=== PATIENT | female | born 1995 | race Caucasian/White ===

== ENCOUNTER 2020-12-28 14:57 | Emergency (ER) | payer OTHER, SELFPAY ==
--- NOTE | 2020-12-28 | XR_ITS ---
PROCEDURE INFORMATION: Exam: XR Left Foot Exam date and time: 12/28/2020 12:00 AM Age: 25 years old Clinical indication: Pain; Toes; Left; Additional info: Hit pinky toe TECHNIQUE: Imaging protocol: XR Left foot. Views: 3 or more views. COMPARISON: No relevant prior studies available. FINDINGS: Bones/joints: Bones appear intact and normally aligned with normal mineralization. No significant arthritic deformities. There are no lytic skeletal lesions seen. Soft tissues: Mild soft tissue swelling. Tiny accessory peroneal ossicle noted, abutting the cuboid bone. No radiopaque foreign bodies. No pathologic soft tissue calcification. IMPRESSION: No acute fracture or dislocation.
[2020-12-28 16:56] VITALS: BP 129/78; PULSE 75; RESP 16; TEMP 37.3; O2SAT 99; BMI 19.5
--- NOTE | 2020-12-28 17:18 | HMH.EDUTC ---
[facility] [place] Disposition Clinical Impression: Toe fracture Qualifiers: Encounter type: initial encounter Toe: lesser toe Fracture type: closed Phalanx: middle Fracture alignment: nondisplaced Laterality: left Qualified Code(s): S92.525A - Nondisplaced fracture of middle phalanx of left lesser toe(s), initial encounter for closed fracture Disposition: Home, Self-Care Condition on Discharge: Good Instructions: How To Perform RICE (Rest, Ice, Compress, Elevate) Additional Instructions: *weight bearing as tolerated *RICE, Rest the extremity, Ice 15-20 minutes 3-4 times daily, Compress- wear the ronald wrap as discussed as much as possible to help reduce swelling and pain, Elevate the extremity when at rest *Ronald wrap is for support and help control swelling, use it except in the shower. Be sure that is not to tight but not to loose either *Elevate when resting *Ibuprofen as directed on package every 6-8 hours as needed for pain an inflammation. If need something more can take Tylenol in between doses of Ibuprofen to help Immediately follow up with your family doctor for new or worsening of symptoms, or no noticeable improvement over the next 3-5 days Referrals: Ramez Green MD [Primary Care Provider] - As needed Maranda Venegas DPM [Staff Physician] - Freya Clark APRN [Nurse Practitioner] - Time of Disposition: 17:42 Medical Decision Making - Sivakumar Inquiry Pt receiving controlled substance: No Sivakumar was queried for this patient: No Vital Signs: 12/28/20 16:56 12/28/20 18:00 Temperature 99.2 F 99.2 F Temperature Source Oral Pulse Rate 75 Pulse Rate [Left] 75 Respiratory Rate 16 16 Blood Pressure 129/78 Blood Pressure [Right Arm] 129/78 Blood Pressure Mean [Right Arm] 95 02 Sat by Pulse Oximetry 99 - Radiology Data #1 Image(s): Foot/Toes Image Reviewed: Yes I reviewed the patient's radiology image ? fracture middle phalanx [facility] [place] HPI - General Stated complaint: AO 12/26 possible broken toe Time Seen by Provider: 12/28/20 17:18 Mode of Arrival: Ambulatory Source of Information: Patient Limitations: No Limitations Description of Symptoms (Recalled from Triage Doc. by RN): pt jammed her L smallest toe in a door. HEENT Symptoms (Recalled from RN notes): No Resp Symptoms (Recalled from RN notes): No Skin Symptoms (Recalled from RN notes): No MS Symptoms (Recalled from RN notes): Yes (L foot and toe pain) Functional Status (Recalled from RN notes): na - History of Present Illness Provider Complaint: Patient states that she was walking on Friday and jammed her left little toe on the corner of the door states that it has continued to have pain and swelling in left little toe so she came in to get it checked States that she josh tapped it for a couple of days and it helped with pain - Related Data Home Medications Medication Instructions Recorded Confirmed levonorgestrel 20 mcg/24 hours (7 INTRAUTERI each 05/01/18 05/01/18 yrs) 52 mg intrauterine device Previous Rx's Medication Instructions Recorded oseltamivir 75 mg capsule 75 mg PO BID 5 Days #10 cap 05/01/18 Allergies Allergy/AdvReac Type Severity Reaction Status Date / Time No Known Allergies Allergy Verified 05/01/18 18:05 - Worker's Comp Is this a Worker's Comp case?: No [facility] History - Hepatitis A Screen Drug use history?: No High risk sexual behaviors?: No History of sexually transmitted infection?: No Currently employed?: No Childcare worker?: No Do you have indoor plumbing?: Yes Do you have electricity?: Yes Attestation statement:: This patient has been screened for Hepatitis A risk factors. I have reviewed the patient's past medical history: Yes - Social History Smoking Status: Never smoker Alcohol Intake: never Occupational Status: employed Housing: house Household Members: family Family Hx:: No significant family history ROS Obtained: Yes All systems reviewed & no additional complaints, Yes Sy
[2020-12-28 18:00] VITALS: BP 129/78; PULSE 75; RESP 16; TEMP 37.3
== END 2020-12-28 18:01 | disposition home or self-care (01) ==
PROVIDERS: Emergency Provider Nurse Practitioner; PCP Family Medicine
DX: S92.525A Nondisplaced fracture of middle phalanx of left lesser toe(s), initial encounter for closed fracture (principal); W22.8XXA Striking against or struck by other objects, initial encounter; Y92.019 Unspecified place in single-family (private) house as the place of occurrence of the external cause
CPT/HCPCS: 73630; 99203; G0463

== ENCOUNTER 2021-01-19 22:03 | Emergency (ER) | payer OTHER, SELFPAY ==
[2021-01-19 22:04] VITALS: BP 126/80; PULSE 80; RESP 14; TEMP 38.8; O2SAT 97; BMI 19.2
[2021-01-19 22:22] VITALS: BP 99/60; PULSE 92; RESP 16; TEMP 37.7
[2021-01-19 22:44] LABS: Basophils # 0.1 K/mm3 (0-0.2); Basophils % 0.6 % (0.1-2.0); Eosinophils % 0.2 % (0.1-12.0); Hematocrit 39.5 % (37.0-47.0); Hemoglobin 14.1 g/dL (12.2-16.2); Lymphocytes # 0.2 K/mm3 (0.7-4.5); Lymphocytes % 3.2 % (10-50); Mean Corpuscular HGB Conc 35.7 g/dL (31.8-35.4); Mean Corpuscular Volume 84.1 fl (81-99); Mean Platelet Volume 7.7 fl (7.4-10.4); Monocytes # 0.4 K/mm3 (0.1-1.0); Neutrophils % 91.1 % (37.0-80.0); Platelet Count 172 K/mm3 (142-424); Red Cell Distribution Width 12.6 % (11.5-17.5); White Blood Count 7.7 K/mm3 (4.8-10.8)
[2021-01-19 22:45] LABS: MANUAL DIFFERENTIAL MANUAL DIFFERENTIAL (MANUAL DIFF)
[2021-01-19 23:05] LABS: Lymphocytes % 7 % (10-50); Monocytes % 2 % (2-9); Neutrophils % 88 % (42-76); Platelet Estimate Normal; RBC Morphology Normal; Total Cells Counted 100
[2021-01-19 23:09] LABS: Alanine Aminotransferase 17 U/L (12-78); Albumin Level 4.8 g/dl (3.5-5.0); Albumin/Globulin Ratio 1.5 (1.1-1.8); Alkaline Phosphatase 38 U/L (38-126); Anion Gap 12.5 mEq/L (5-15); Aspartate Amino Transferase 33 U/L (14-36); Bilirubin,Total 0.9 mg/dl (0.2-1.3); Blood Urea Nitrogen 15 mg/dl (7-17); Calcium 9.5 mg/dl (8.4-10.2); Carbon Dioxide 28 mmol/L (22.0-30.0); Chloride 102 mmol/L (98-107); Creatinine Clearance Estimated 86 mL/min (50-200); Estimated Glomerular Filt Rate 87 ml/min (>60); GFR (African American) 106 ML/MIN (>60); Globulin 3.1 g/dL (1.3-3.2); Glucose 118 mg/dl (74-100); Potassium 3.5 mmoL/L (3.5-5.1); Sodium 139 mmol/L (136-145); Total Protein,Serum 7.9 g/dl (6.3-8.2)
--- NOTE | 2021-01-19 23:15 | XR_ITS ---
PROCEDURE INFORMATION: Exam: XR Chest Exam date and time: 01/19/2021 11:15 PM Age: 25 years old Clinical indication: Other: Febrile TECHNIQUE: Imaging protocol: XR of the chest. Views: 2 views. COMPARISON: No relevant prior studies available. FINDINGS: Lungs: Unremarkable. No consolidation. Pleural spaces: Unremarkable. No pleural effusion. No pneumothorax. Heart/Mediastinum: Unremarkable. No cardiomegaly. Bones/joints: Unremarkable. IMPRESSION: No acute findings.
[2021-01-19 23:32] LABS: Erythrocyte Sedimentation Rate 15 mm/hr (0-20)
[2021-01-19 23:35] VITALS: BP 102/68; PULSE 88; RESP 14; TEMP 37.9
[2021-01-19 23:47] LABS: C-Reactive Protein 1.7 mg/L (0-4)
[2021-01-20 00:01] LABS: Procalcitonin 0.194 ng/mL (0.0-2.0)
== END 2021-01-19 23:53 | disposition left against medical advice (07) ==
PROVIDERS: Emergency Provider Emergency Medicine; PCP Family Medicine
DX: Z53.21 Procedure and treatment not carried out due to patient leaving prior to being seen by health care provider (principal); R50.9 Fever, unspecified; R53.1 Weakness
CPT/HCPCS: 71046; 80053; 84145; 85007; 85025; 85651; 86140; 99211

== ENCOUNTER 2025-02-01 08:26 | Outpatient (CLI) | payer OTHER, SELFPAY ==
--- OUTSIDE RECORDS SUMMARY | 2025-02-02 10:22 | XMS_ITS | Clinical Summary ---
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 Active Active Problems Problem Noted Date Diagnosed Date Routine follow-up 03/16/2024 Aria vaginitis 01/21/2024 Assessment & Plan (01/21/2024 12:42 PM EST): Exam today with discharge consistent with Aria and pH negative for amniotic fluid. Diflucan Rx sent. 39 weeks gestation of 12/04/2023 Assessment & Plan (02/16/2024 3:10 PM EST): Labs reviewed: A+ Rubella immune. Other PNL normal. Failed 1h GTT (170) + 3h GTT (2/4 values). GBS NEGATIVE Last pap 2020 (normal). Needs pap. Ultrasounds: Dated by 7w US inconsistent with LMP. 1T screening US with normal NT (1.1 mm). Anatomy US 10/06 WNL. Growth US 12/17 with EFW 64%, AC 82%, normal fluid; transverse/funic presentation. Growth US 01/20: VERTEX, normal fluid, EFW 61%, AC 91%, BPP 8/8. Genetic Screening: NIPT low risk. Horizon carrier screening negative x14. Immunizations: s/p Tdap 10/3. Counseled, declines flu vax. S/p RSV 12/31. Delivery Planning: Anticipate . H/o x1 - 41w, pelvis proven to 3375g. Desires spontaneous labor but interested in IOL for 39+ weeks. Desires 12 AM -- plan arrival at 0500 -- 2.5 cm dilated today, will forego cervical ripening balloon. Feeding: Plans breast. Has pump. Contraception: considering vasectomy. Pt feels family is complete after this baby. Discussed rec for backup BC for at least 6 months after vasectomy until confirmatory semen analysis. Continue vitamins. Induction methods reviewed in detail including prostaglandins, cervical ripening balloon, Pitocin, amniotomy. Consent obtained for induction of labor, vaginal delivery, or section. Risks, benefits, alternatives discussed, and patient expressed understanding. Written consent signed & placed in patient chart. Plan to arrive 02/17 at 05:00 a.m.. Assessment & Plan (02/12/2024 9:25 AM EST): Labs reviewed: A+ Rubella immune. Other PNL normal. Failed 1h GTT (170) + 3h GTT (2/4 values). GBS NEGATIVE Last pap 2020 (normal). Needs pap. Ultrasounds: Dated by 7w US inconsistent with LMP. 1T screening US with normal NT (1.1 mm). Anatomy US 8/ WNL. Growth US 12/17 with EFW 64%, AC 82%, normal fluid; transverse/funic presentation. Growth US 01/20: VERTEX, normal fluid, EFW 61%, AC 91%, BPP 8/8. Genetic Screening: NIPT low risk. Horizon carrier screening negative x14. Immunizations: s/p Tdap 10/3. Counseled, declines flu vax. S/p RSV 12/31. Delivery Planning: Anticipate . H/o x1 - 41w, pelvis proven to 3375g. Desires spontaneous labor but interested in IOL for 39+ weeks. Desires 12 PM -- scheduled - 39w2d. Feeding: Plans breast. Has pump. Contraception: considering vasectomy. Pt feels family is complete after this baby. Discussed rec for backup BC for at least 6 months after vasectomy until confirmatory semen analysis. Continue vitamins. Membrane sweep today -- 1.5/50/-3. Labor precautions reviewed. Assessment & Plan (02/09/2024 12:22 PM EST): Labs reviewed: A+ Rubella immune. Other PNL normal. Failed 1h GTT (170) + 3h GTT (2/4 values). GBS NEGATIVE Last pap 2020 (normal). Needs pap. Ultrasounds: Dated by 7w US inconsistent with LMP. 1T screening US with normal NT (1.1 mm). Anatomy US 8/6 WNL. Growth US 12/17 with EFW 64%, AC 82%, normal fluid; transverse/funic presentation. Growth US 01/20: VERTEX, normal fluid, EFW 61%, AC 91%, BPP 8/8. Genetic Screening: NIPT low risk. Horizon carrier screening negative x14. Immunizations: s/p Tdap 12/03. Counseled, declines flu vax. S/p RSV 12/31. Delivery Planning: Anticipate . H/o x1 - 41w, pelvis proven to 3375g. Desires spontaneous labor but interested in IOL for 39+ weeks. Desires 02/16 PM -- scheduled - 39w2d. Feeding: Plans breast. Has pump. Contraception: considering vasectomy. Pt feels family is complete after this baby. Discussed rec for backup BC for at least 6 months after vasectomy until confirmatory semen analysis. Continue vitamins. Labor precautions reviewed. Reviewed precautions to call or present for evaluation. Assessment & Plan (02/08/2024 1:58 PM EST): Labs reviewed: A+ Rubella immune. Other PNL normal. Failed 1h GTT (170) + 3h GTT (2/4 values). GBS NEGATIVE Last pap 2020 (normal). Needs pap. Ultrasounds: Dated by 7w US inconsistent with LMP. 1T screening US with normal NT (1.1 mm). Anatomy US 8/6 WNL. Growth US 12/17 with EFW 64%, AC 82%, normal fluid; transverse/funic presentation. Growth US 01/20: VERTEX, normal fluid, EFW 61%, AC 91%, BPP 8/8. Genetic Screening: NIPT low risk. Horizon carrier screening negative x14. Immunizations: s/p Tdap 10/3. Counseled, declines flu vax. S/p RSV 12/31. Delivery Planning: Anticipate . H/o x1 - 41w, pelvis proven to 3375g. Desires spontaneous labor but interested in IOL for 39+ weeks. Desires 12/17 PM -- scheduled - 39w2d. Feeding: Plans breast. Has pump. Contraception: considering vasectomy. Pt feels family is complete after this baby. Discussed rec for backup BC for at least 6 months after vasectomy until confirmatory semen analysis. Continue vitamins. Labor precautions reviewed. Reviewed precautions to call or present for evaluation. Assessment & Plan (02/05/2024 9:54 AM EST): Labs reviewed: A+ Rubella immune. Other PNL normal. Failed 1h GTT (170) + 3h GTT (2/4 values). GBS NEGATIVE Last pap 2020 (normal). Needs pap. Ultrasounds: Dated by 7w US inconsistent with LMP. 1T screening US with normal NT (1.1 mm). Anatomy US 8 WNL. Growth US 12/17 with EFW 64%, AC 82%, normal fluid; transverse/funic presentation. Growth US 01/20: VERTEX, normal fluid, EFW 61%, AC 91%, BPP 8/8. Genetic Screening: NIPT low risk. Horizon carrier screening negative x14. Immunizations: s/p Tdap 10/3. Counseled, declines flu vax. S/p RSV 12/31. Delivery Planning: Anticipate . H/o x1 - 41w, pelvis proven to 3375g. Desires spontaneous labor but interested in IOL for 39+ weeks. Desires 12/17 PM -- scheduled. Feeding: Plans breast. Has pump. Contraception: considering vasectomy. Pt feels family is complete after this baby. Discussed rec for backup BC for at least 6 months after vasectomy until confirmatory semen analysis. Continue vitamins. Labor precautions reviewed. Reviewed precautions to call or present for evaluation. Assessment & Plan (01/28/2024 8:38 AM EST): Labs reviewed: A+ Rubella immune. Other PNL normal. Failed 1h GTT (170) + 3h GTT (2/4 values). GBS NEGATIVE Last pap 2020 (normal). Needs pap. Ultrasounds: Dated by 7w US inconsistent with LMP. 1T screening US with normal NT (1.1 mm). Anatomy US 8/6 WNL. Growth US 12/17 with EFW 64%, AC 82%, normal fluid; transverse/funic presentation. Growth US 01/20: VERTEX, normal fluid, EFW 61%, AC 91%, BPP 8/8. Genetic Screening: NIPT low risk. Horizon carrier screening negative x14. Immunizations: s/p Tdap 10/3. Counseled, declines flu vax. S/p RSV 12/31. Delivery Planning: Anticipate . H/o x1 - 41w, pelvis proven to 3375g. Desires spontaneous labor but interested in IOL for 39+ weeks. Desires 12/17 PM -- scheduled. Feeding: Plans breast. Has pump. Contraception: considering vasectomy. Pt feels family is complete after this baby. Discussed rec for backup BC for at least 6 months after vasectomy until confirmatory semen analysis. Continue vitamins. Labor precautions reviewed. Reviewed precautions to call or present for evaluation. Assessment & Plan (01/28/2024 7:59 AM EST): Labs reviewed: A+ Rubella immune. Other PNL normal. Failed 1h GTT (170) + 3h GTT (2/4 values). GBS NEGATIVE Last pap 2020 (normal). Needs pap. Ultrasounds: Dated by 7w US inconsistent with LMP. 1T screening US with normal NT (1.1 mm). Anatomy US 8/6 WNL. Growth US 12/17 with EFW 64%, AC 82%, normal fluid; transverse/funic presentation. Growth US today 01/20: VERTEX, normal fluid, EFW 61%, AC 91%, BPP 8/8. Genetic Screening: NIPT low risk. Horizon carrier screening negative x14. Immunizations: s/p Tdap 10/3. Counseled, declines flu vax. S/p RSV 12/31. Delivery Planning: Anticipate . H/o x1 - 41w, pelvis proven to 3375g. Desires spontaneous labor but interested in IOL for 39+ weeks. Desires 12/17 PM -- scheduled. Feeding: Plans breast. Has pump. Contraception: considering vasectomy. Pt feels family is complete after this baby. Discussed rec for backup BC for at least 6 months after vasectomy until confirmatory semen analysis. Continue vitamins. Reviewed precautions to call or present for evaluation. Assessment & Plan (01/21/2024 12:42 PM EST): Labs reviewed: A+ Rubella immune. Other PNL normal. Failed 1h GTT (170) + 3h GTT (2/4 values). Last pap 2020 (normal). Needs pap. Ultrasounds: Dated by 7w US inconsistent with LMP. 1T screening US with normal NT (1.1 mm). Anatomy US 8/6 WNL. Growth US 12/17 with EFW 64%, AC 82%, normal fluid; transverse/funic presentation. Growth US today 01/20: VERTEX, normal fluid, EFW 61%, AC 91%, BPP 8/8. Genetic Screening: NIPT low risk. Horizon carrier screening negative x14. Immunizations: s/p Tdap 12/03. Counseled, declines flu vax. S/p RSV 12/31. Delivery Planning: Anticipate . H/o x1 - 41w, pelvis proven to 3375g. Desires spontaneous labor but interested in IOL for 39+ weeks. Desires 12/17 PM -- scheduled. Feeding: Plans breast. Has pump. Contraception: considering vasectomy. Pt feels family is complete after this baby. Discussed rec for backup BC for at least 6 months after vasectomy until confirmatory semen analysis. Continue vitamins. GBS done today. Reviewed precautions to call or present for evaluation. Assessment & Plan (01/20/2024 6:11 PM EST): Labs reviewed: A+ Rubella immune. Other PNL normal. Failed 1h GTT (170) + 3h GTT (2/4 values). Last pap 2020 (normal). Needs pap. Ultrasounds: Dated by 7w US inconsistent with LMP. 1T screening US with normal NT (1.1 mm). Anatomy US 8/6 WNL. Growth US 12/17 with EFW 64%, AC 82%, normal fluid; transverse/funic presentation. Reviewed that 97% of babies at 36w are cephalic presenting. Will f/up on next growth US 01/20. Genetic Screening: NIPT low risk. Horizon carrier screening negative x14. Immunizations: s/p Tdap 10/3. Counseled, declines flu vax. S/p RSV 12/31. Delivery Planning: Anticipate . H/o x1 - 41w, pelvis proven to 3375g. Desires spontaneous labor but interested in IOL for 39+ weeks. Desires 12/ PM -- scheduled. Feeding: Plans breast. Has pump. Contraception: considering vasectomy. Pt feels family is complete after this baby. Discussed rec for backup BC for at least 6 months after vasectomy until confirmatory semen analysis. Continue vitamins. Reviewed precautions to call or present for evaluation. Assessment & Plan (01/15/2024 7:57 AM EST): Labs reviewed: A+ Rubella immune. Other PNL normal. Failed 1h GTT (170) + 3h GTT (2/4 values). Last pap 2020 (normal). Needs pap. Ultrasounds: Dated by 7w US inconsistent with LMP. 1T screening US with normal NT (1.1 mm). Anatomy US 8/6 WNL. Growth US 12/17 with EFW 64%, AC 82%, normal fluid; transverse/funic presentation. Reviewed that 97% of babies at 36w are cephalic presenting. Will f/up on next growth US 01/20. Genetic Screening: NIPT low risk. Horizon carrier screening negative x14. Immunizations: s/p Tdap 10/3. Counseled, declines flu vax. S/p RSV 12/31. Delivery Planning: Anticipate . H/o x1 - 41w, pelvis proven to 3375g. Desires spontaneous labor but interested in IOL for 39+ weeks. Desires 12/17 PM -- scheduled. Feeding: Plans breast. Has pump. Contraception: considering vasectomy. Pt feels family is complete after this baby. Discussed rec for backup BC for at least 6 months after vasectomy until confirmatory semen analysis. Continue vitamins. Reviewed precautions to call or present for evaluation. Assessment & Plan (01/12/2024 10:31 AM EST): Labs reviewed: A+ Rubella immune. Other PNL normal. Failed 1h GTT (170) + 3h GTT (2/4 values). Last pap 2020 (normal). Needs pap. Ultrasounds: Dated by 7w US inconsistent with LMP. 1T screening US with normal NT (1.1 mm). Anatomy US 8/6 WNL. Growth US 12/17 with EFW 64%, AC 82%, normal fluid; transverse/funic presentation. Reviewed that 97% of babies at 36w are cephalic presenting. Will f/up on next growth US 01/20. Genetic Screening: NIPT low risk. Horizon carrier screening negative x14. Immunizations: s/p Tdap 10/3. Counseled, declines flu vax. S/p RSV 12/31. Delivery Planning: Anticipate . H/o x1 - 41w, pelvis proven to 3375g. Desires spontaneous labor but interested in IOL for 39+ weeks. Desires 12/17 PM -- scheduled. Feeding: Plans breast. Has pump. Contraception: considering vasectomy. Pt feels family is complete after this baby. Discussed rec for backup BC for at least 6 months after vasectomy until confirmatory semen analysis. Continue vitamins. Reviewed precautions to call or present for evaluation. Assessment & Plan (01/08/2024 9:46 AM EST): Labs reviewed: A+ Rubella immune. Other PNL normal. Failed 1h GTT (170) + 3h GTT (2/4 values). Last pap 2020 (normal). Needs pap. Ultrasounds: Dated by 7w US inconsistent with LMP. 1T screening US with normal NT (1.1 mm). Anatomy US 8/6 WNL. Growth US 10 with EFW 64%, AC 82%, normal fluid; transverse/funic presentation. Reviewed that 97% of babies at 36w are cephalic presenting. Will f/up on next growth US 01/20. Genetic Screening: NIPT low risk. Horizon carrier screening negative x14. Immunizations: s/p Tdap 10/3. Counseled, declines flu vax. S/p RSV 12/31. Delivery Planning: Anticipate . H/o x1 - 41w, pelvis proven to 3375g. Desires spontaneous labor but interested in IOL for 39+ weeks. Will discuss with for week of 02/15 - schedule next visit. Feeding: Plans breast. Has pump. Contraception: considering vasectomy. Pt feels family is complete after this baby. Discussed rec for backup BC for at least 6 months after vasectomy until confirmatory semen analysis. Continue vitamins. Reviewed precautions to call or present for evaluation. Assessment & Plan (01/05/2024 7:00 AM EST): Labs reviewed: A+ Rubella immune. Other PNL normal. Failed 1h GTT (170) + 3h GTT (2/4 values). Last pap 2020 (normal). Needs pap. Ultrasounds: Dated by 7w US inconsistent with LMP. 1T screening US with normal NT (1.1 mm). Anatomy US 8/6 WNL. Growth US 12/17 with EFW 64%, AC 82%, normal fluid; transverse/funic presentation. Reviewed that 97% of babies at 36w are cephalic presenting. Will f/up on next growth US in 4 weeks. Genetic Screening: NIPT low risk. Horizon carrier screening negative x14. Immunizations: s/p Tdap 12/03. Counseled, declines flu vax. S/p RSV today 12/31. Delivery Planning: Anticipate . H/o x1 - 41w, pelvis proven to 3375g. Desires spontaneous labor. Continue to discuss delivery planning. Feeding: Plans breast. Has pump. Contraception: Continue to discuss. Continue vitamins. Reviewed precautions to call or present for evaluation. Assessment & Plan (2023 3:11 PM EDT): Labs reviewed: A+ Rubella immune. Other PNL normal. Failed 1h GTT (170) + 3h GTT (2/4 values). Last pap 2020 (normal). Needs pap. Ultrasounds: Dated by 7w US inconsistent with LMP. 1T screening US with normal NT (1.1 mm). Anatomy US 8/6 WNL. Growth US today 12/17 with EFW 64%, AC 82%, normal fluid; transverse/funic presentation. Reviewed that 97% of babies at 36w are cephalic presenting. Will f/up on next growth US in 4 weeks. Genetic Screening: NIPT low risk. Horizon carrier screening negative x14. Immunizations: s/p Tdap 12/03. Counseled, declines flu vax. Discussed RSV vaccine today, will consider for next visit. Delivery Planning: Anticipate . H/o x1 - 41w, pelvis proven to 3375g. Desires spontaneous labor. Continue to discuss delivery planning. Feeding: Plans breast. Has pump. Contraception: Continue to discuss. Continue vitamins. Reviewed precautions to call or present for evaluation. Gestational diabetes mellitus (GDM), delivered 1 Assessment & Plan (02/16/2024 3:11 PM EST): Failed 1h GTT (170) + 3h GTT (2/4 values). BG relatively well controlled with dietary and lifestyle changes. Able to associate elevated glucose with specific meals/foods & has found that walking after meals helps. Growth US 12/17 with normal growth: EFW 64%, AC 82%, and normal fluid. Growth US 01/20 with slightly accelerated abdominal growth - AC 91% with EFW stable at 61% (2873g). Discussed slight increased risk of shoulder dystocia at . Over past 1-2 weeks, extremely well controlled FSBS - only 2 abnormal values in past week. Will defer meds. Continue NSTs 2x/wk. Continue QID FSBG Appropriate for delivery [id number] at this point. Discussed IOL at 39 weeks: 12/18 AM. Assessment & Plan (02/12/2024 9:25 AM EST): Failed 1h GTT (170) + 3h GTT (2/4 values). BG relatively well controlled with dietary and lifestyle changes. Able to associate elevated glucose with specific meals/foods & has found that walking after meals helps. Growth US 10/17 with normal growth: EFW 64%, AC 82%, and normal fluid. Growth US 01/20 with slightly accelerated abdominal growth - AC 91% with EFW stable at 61% (2873g). Discussed slight increased risk of shoulder dystocia at . Over past 1-2 weeks, extremely well controlled FSBS - only 2 abnormal values in past week. Will defer meds for now. Continue NSTs 2x/wk. Continue QID FSBG Appropriate for delivery [id number] at this point. Discussed IOL at 39 weeks scheduled for 02/16 (39w2d) at 3pm. Will adjust if cervical ripening not necessary. Assessment & Plan (02/09/2024 12:22 PM EST): Failed 1h GTT (170) + 3h GTT (2/4 values). BG relatively well controlled with dietary and lifestyle changes. Able to associate elevated glucose with specific meals/foods & has found that walking after meals helps. Growth US 10/17 with normal growth: EFW 64%, AC 82%, and normal fluid. Growth US 11/20 with slightly accelerated abdominal growth - AC 91% with EFW stable at 61% (2873g). Discussed slight increased risk of shoulder dystocia at . Over past 1-2 weeks, extremely well controlled FSBS - only 2 abnormal values in past week. Will defer meds for now. Continue NSTs 2x/wk. Continue QID FSBG Appropriate for delivery [id number] at this point. Discussed IOL at 39 weeks scheduled for 02/16 (39w2d) at 3pm. Will adjust if cervical ripening not necessary. Assessment & Plan (02/08/2024 1:59 PM EST): Failed 1h GTT (170) + 3h GTT (2/4 values). BG relatively well controlled with dietary and lifestyle changes. Able to associate elevated glucose with specific meals/foods & has found that walking after meals helps. Growth US 10/17 with normal growth: EFW 64%, AC 82%, and normal fluid. Growth US 11/20 with slightly accelerated abdominal growth - AC 91% with EFW stable at 61% (2873g). Discussed slight increased risk of shoulder dystocia at . Over past 1-2 weeks, extremely well controlled FSBS - only 1 abnormal value in past week. Will defer meds for now. Continue NSTs 2x/wk. Continue QID FSBG Appropriate for delivery [id number] at this point. Discussed IOL at 39 weeks scheduled for 02/16 (39w2d) at 3pm. Will adjust if cervical ripening not necessary. Assessment & Plan (02/05/2024 12:21 PM EST): Failed 1h GTT (170) + 3h GTT (2/4 values). BG relatively well controlled with dietary and lifestyle changes. Able to associate elevated glucose with specific meals/foods & has found that walking after meals helps. Growth US 10/17 with normal growth: EFW 64%, AC 82%, and normal fluid. Growth US 11/20 with slightly accelerated abdominal growth - AC 91% with EFW stable at 61% (2873g). Discussed slight increased risk of shoulder dystocia at . Over past 1-2 weeks, only 2 abnormal glucose values total. Will defer meds for now. Continue NSTs 2x/wk. Continue QID FSBG Appropriate for delivery [id number] at this point. Discussed IOL at 39 weeks scheduled for 02/16 (39w2d) at 3pm. Will adjust if cervical ripening not necessary. Assessment & Plan (01/28/2024 8:39 AM EST): Failed 1h GTT (170) + 3h GTT (2/4 values). BG relatively well controlled with dietary and lifestyle changes. Able to associate elevated glucose with specific meals/foods & has found that walking after meals helps. Growth US 10/17 with normal growth: EFW 64%, AC 82%, and normal fluid. Growth US 11/20 with slightly accelerated abdominal growth - AC 91% with EFW stable at 61% (2873g). Discussed slight increased risk of shoulder dystocia at . Within the past 2 weeks, slightly more frequent elevated PP sugars in low 120s, still about 20% of total BG values. Reviewed that glycemic control peripartum important to decrease risk of hypoglycemia and NICU admission. Discussed options for medication management: Reviewed that insulin is first-line in , but the metformin has been well studied as an oral alternative. Since last visit, all FSBG WNL! Will defer meds for now. Continue NSTs 2x/wk. Continue QID FSBG Appropriate for delivery [id number] at this point. Discussed IOL at 39 weeks scheduled for 02/16 (39w2d) at 3pm. Will adjust if cervical ripening not necessary. Assessment & Plan (01/28/2024 7:59 AM EST): Failed 1h GTT (170) + 3h GTT (2/4 values). BG relatively well controlled with dietary and lifestyle changes. Able to associate elevated glucose with specific meals/foods & has found that walking after meals helps. [facility] 12/17 with normal growth: EFW 64%, AC 82%, and normal fluid. Growth US 01/20 with slightly accelerated abdominal growth - AC 91% with EFW stable at 61% (2873g). Discussed slight increased risk of shoulder dystocia at . Within the past 2 weeks, slightly more frequent elevated PP sugars in low 120s, still about 20% of total BG values. Reviewed that glycemic control peripartum important to decrease risk of hypoglycemia and NICU admission. Discussed options for medication management: Reviewed that insulin is first-line in , but the metformin has been well studied as an oral alternative. Since last visit, only 1 glucose value elevated - postprandial to 125. Will defer meds for now. Continue NSTs 2x/wk. Appropriate for delivery [id number] at this point. Discussed IOL at 39 weeks scheduled for 02/16 (39w2d) at 3pm. Will adjust if cervical ripening not necessary. Assessment & Plan (01/21/2024 12:41 PM EST): Failed 1h GTT (170) + 3h GTT (2/4 values). BG relatively well controlled with dietary and lifestyle changes. Able to associate elevated glucose with specific meals/foods & has found that walking after meals helps. [facility] 12/17 with normal growth: EFW 64%, AC 82%, and normal fluid. Today's Growth US 01/20 with slightly accelerated abdominal growth - AC 91% with EFW stable at 61% (2873g). Discussed slight increased risk of shoulder dystocia at . Within the past 2 weeks, slightly more frequent elevated PP sugars in low 120s, still about 20% of total BG values. Reviewed that glycemic control peripartum important to decrease risk of hypoglycemia and NICU admission. Discussed options for medication management: Reviewed that insulin is first-line in , but the metformin has been well studied as an oral alternative. Patient will consider starting 1 of these options at next visit if sugars continue to slowly increase. Continue NSTs 2x/wk. Appropriate for delivery [id number] at this point. Discussed IOL at 39 weeks scheduled for 02/16 (39w2d) at 3pm. Will adjust if cervical ripening not necessary. Assessment & Plan (01/20/2024 6:11 PM EST): Failed 1h GTT (170) + 3h GTT (2/4 values). BG relatively well controlled with dietary and lifestyle changes. Able to associate elevated glucose with specific meals/foods & has found that walking after meals helps. Continue lifestyle management & QID fingersticks. [facility] 12/17 with normal growth: EFW 64%, AC 82%, and normal fluid. Continue growth US q4 weeks. Next scheduled 01/20. NSTs 2x/wk at 32w. Reactive today. Appropriate for delivery at 39w if BG remains controlled & status reassuring. Discussed IOL at 39 weeks Scheduled for 02/16 at 3pm. Will adjust if cervical ripening not necessary. Assessment & Plan (01/15/2024 7:58 AM EST): Failed 1h GTT (170) + 3h GTT (2/4 values). BG relatively well controlled with dietary and lifestyle changes. Able to associate elevated glucose with specific meals/foods & has found that walking after meals helps. Continue lifestyle management & QID fingersticks. [facility] US 12/17 with normal growth: EFW 64%, AC 82%, and normal fluid. Continue growth US q4 weeks. Next scheduled 01/20. NSTs 2x/wk at 32w. Reactive today. Appropriate for delivery at 39w if BG remains controlled & status reassuring. Discussed IOL at 39 weeks Scheduled for 02/16 at 3pm. Will adjust if cervical ripening not necessary. Assessment & Plan (01/12/2024 10:31 AM EST): Failed 1h GTT (170) + 3h GTT (2/4 values). BG relatively well controlled with dietary and lifestyle changes. Able to associate elevated glucose with specific meals/foods & has found that walking after meals helps. Continue lifestyle management & QID fingersticks. [facility] US 12/17 with normal growth: EFW 64%, AC 82%, and normal fluid. Continue growth US q4 weeks. Next scheduled 01/20. NSTs 2x/wk at 32w. Reactive today. Appropriate for delivery at 39w if BG remains controlled & status reassuring. Discussed IOL at 39+ weeks (week of 02/15). Scheduled tentatively for 02/16 at 3pm. Will adjust if cervical ripening not necessary. Assessment & Plan (01/08/2024 9:46 AM EST): Failed 1h GTT (170) + 3h GTT (2/4 values). BG relatively well controlled with dietary and lifestyle changes. Able to associate elevated glucose with specific meals/foods & has found that walking after meals helps. Continue lifestyle management & QID fingersticks. [facility] 12/17 with normal growth: EFW 64%, AC 82%, and normal fluid. Continue growth US q4 weeks. Next scheduled 01/20. NSTs 2x/wk at 32w. Reactive today. Appropriate for delivery at 39w if BG remains controlled & status reassuring. Discussed IOL at 39+ weeks (week of 02/15). Plan to schedule next visit. Assessment & Plan (01/05/2024 7:01 AM EST): Failed 1h GTT (170) + 3h GTT (2/4 values). BG relatively well controlled with dietary and lifestyle changes. Able to associate elevated glucose with specific meals/foods & has found that walking after meals helps. Most recently, fastings all normal. Minimal elevated PP - associated with excess sugar/simple carbs & adjusting accordingly. Continue lifestyle management & QID fingersticks. [facility] 12/17 with normal growth: EFW 64%, AC 82%, and normal fluid. Continue growth US q4 weeks. Discussed NSTs starting at 32 weeks. Scheduled today to start next week. Appropriate for delivery at 39w if BG remains controlled & status reassuring. Assessment & Plan (2023 3:16 PM EDT): Failed 1h GTT (170) + 3h GTT (2/4 values). BG relatively well controlled with dietary and lifestyle changes. Able to associate elevated glucose with specific meals/foods & has found that walking after meals helps. Most recently, fastings all normal. Minimal elevated PP (mostly dinner - highest 132). Continue lifestyle management & QID fingersticks. [facility] US today 12/17 with normal growth: EFW 64%, AC 82%, and normal fluid. Continue growth US q4 weeks. Discussed NSTs starting at 32 weeks - need to schedule. Appropriate for delivery at 39w if BG remains controlled & status reassuring. Supervision of other normal , antepartu m 07/08/2023 Resolved Problems Problem Noted Date Diagnosed Date Resolved Date Encounter for surveillance of contraceptives 2 2023 Immunizations Immunization Administration Dates Next Due Rsv, Bivalent, Protein Subun it Rsvpref, Diluent Reconstituted, 0.5mL, PF 01/01/2024 Tdap 12/04/2023 Family History Medical History Relation Name Comments No Known Problems Daughter No Known Problems Father Autoimmune disease Father's Sister Claudio Maria Stroke Maternal Grandfather Uriah Jeong Diabetes Maternal Grandmother Ramona Jeong Stroke Maternal Grandmother Ramona Jeong No Known Problems Mother No Known Problems Mother's Brother No Known Problems Mother's Sister No Known Problems Paternal Grandfather Cancer Paternal Grandmother Deisy Carrion Lung ca ncer Seizures Sister Relation Name Status Comments Daughter Alive Father Alive Father's Sister Claudio Maria Alive Maternal Grandfather Uriah Jeong Maternal Grandmother Ramona Jeong Mother Alive Mother's Brother Alive Mother's Sister Alive Paternal Grandfather Paternal Grandmother Deisy Carrion Sister Alive Social History Tobacco Use Types Packs/Day Years Used Date Smoking Tobacco: Never Smokeless Tobacco: Never Tobacco Cessation:Counseling Given: Not Answered Alcohol Use Standard Drinks/Week Comments Never 0 (1 standard drink = 0.6 oz pur e alcohol) PHQ-2 Answer Date Recorded Patient Health Questionnaire-2 Score 0 09/15/2024 Comments Unknown Sex and Gender Information Value Date Recorded Sex Assigned at Female 08/12/2023 4:07 PM EDT Legal Sex Female 8:00 PM EDT Gender Identity Female 08/12/2023 4:07 PM EDT Sexual Orientation Straight 08/12/2023 4: 07 PM EDT Last Filed Vital Signs Vital Sign Reading Time Taken Comments Blood Pressure 135/85 09/15/2024 8:00 AM EDT Pulse 62 09/15/2024 8:00 AM EDT Temperature 36.7 C (98.1 F) 03/15/2024 1:30 PM EST Respiratory Rate 14 01/01/2024 8:19 AM EDT Oxygen Saturation 100% 09/15/2024 8:00 AM EDT Inhaled Oxygen Concentration - - Weight 61.4 kg (135 lb 5.8 oz) 09/15/2024 8:00 A M EDT Height 162.6 cm (5' 4 ) 09/15/2024 8:00 AM EDT Body Mass Index 23.23 09/15/2024 8:00 AM EDT Plan of Treatment Health Maintenance Due Date Last Done Comments [facility]-Infant/Child/Adol SDOH Screenings 1995 [facility]-Varicella Vaccines (1 of 2 - 13+ 2-dose series) 12/21/2008 [facility]- SDOH Screenings 12/21/2013 [facility]-Adult SDOH Screenings 12/21/2013 [facility]-Hepatitis B Vaccines (1 of 3 - 19+ 3-dose series) 12/21/2014 [facility]-Pneumococcal Vaccine: Pediatrics (0 to 5 Years) and At-Risk Patients (6 to 49 Years) (1 of 2 - PCV) 12/21/2014 HPV Vaccines (1 - 3-dose SCD M series) 12/21/2022 [facility]-Pap Smear 07/06/2023 07/05/2020 [id number] Vaccine (2 - season) 2024 01/19/2021 [facility]-Influenza Vaccine (#1) 2024 [facility]-Depression Screening 09/15/2025 09/15/2024 [facility]-DTaP,Tdap,and Td Vaccine s (2 - Td or Tdap) 12/03/2033 12/04/2023 [facility]-Zoster Vaccines (1 of 2) 12/21/2045 [facility]-HIV Screening Completed 07/08/2023 [facility]-Hepatitis C Screening Completed 07/08/2023 [facility]-RSV Vaccine: 60+ Years o r Discontinued 01/01/2024 [facility]-HIB Vaccines Aged Out No longer e ligible based on patient's age to complete this topic [facility]-Hepatitis A Vaccines Aged Out No longer eligible based on patient's age to complete this topic [facility]-IPV Vaccines Aged Out No longer e ligible based on patient's age to complete this topic [facility]-Rotavirus Vaccines Aged Out No lo nger eligible based on patient's age to complete this topic Goals Goal Patient Goal Type Associated Problems Recent Progress Patient-Stated? Author Delayed Delivery Care Plan CPM S22 PP LABOR (OBSTETRICS) No Open Scheduling, Background Procedures Procedure Name Priority Date/Time Associated Diagnosis Comments HEPATITIS C ANTIBODY W/REFLEX TO HCV QUANT PCR Routine 07/08/2023 10:15 AM EDT Missed period HIV 1/2 ANTIBODY/ANTIGEN SCREEN WITH REFLEX TO HIV I/II DIFFERENTIATION Routine 07/08/2023 10:15 AM EDT Missed period CYTO DATA CONVERSION Routine 07/05/2020 12:00 AM EDT from Last 3 Months or Most Recently Relevant to Health Maintenance Results * HIV 1 & 2 Antibody/Antigen Screen (07/08/2023 10:15 AM EDT) HIV 1 & 2 Antibody/Antigen Screen Non Reactive Non Reactive 07/08/2023 1:53 PM EDT [facility] Comment:Screening for HIV 1 & 2 antibodies, and P24 antigen is NONREACTIVE. No confirmatory testing is required. Blood Venous blood specimen / Unknown Venipuncture / Unknown 07/08/2023 10:15 AM EDT 07/08/2023 12:55 PM EDT Karlie Gallardo APRN, CNM LAB BLOOD ORDERABLE S Final Result Performing Organization Address City/State/[facility] Co de Phone Number [facility] [address] [place] [phone] * Hepatitis C Antibody w/Reflex to HCV Quant PCR (07/08/2023 10:15 AM EDT) Hepatitis C Antibody Negative Negative 07/08/2023 1:49 PM EDT [facility] Blood Venous blood specimen / Unknown Venipuncture / Unknown 07/08/2023 10:15 AM EDT 07/08/2023 12:55 PM EDT Karlie Gallardo APRN, CNM LAB BLOOD ORDERABLE S Final Result [facility] [address] [place] [address] * Cytology (07/05/2020 12:00 AM EDT) 07/05/2020 07/06/2020 12: 59 PM EDT Narrative COPATH - 07/14/2020 12:09 PM EDT [facility] MR #: [id number] [facility] [address]NA [place], [place] [address] 1995 (Age: 24) FW Collect Date: 07/05/2020 00:00 Receipt Date: 07/06/2020 12:59 Page 1 DEPARTMENT OF PATHOLOGY AND LABORATORY MEDICINE CYTOPATHOLOGY REPORT Email: [email or web address] ATTENDING MD/Practitioner: Manohar Mena CN Service: [facility]OB Location: [facility] Reported: 07/14/2020 12:09 Collected: 07/05/2020 00:00 INTERPRETATION A. THIN PREP (CERVICAL/VAGINAL): NEGATIVE FOR INTRAEPITHELIAL LESION OR MALIGNANCY. FUNGAL ORGANISMS CONSISTENT WITH ARIA SPECIES. SATISFACTORY FOR EVALUATION; ENDOCERVICAL/ TRANSFORMATION ZONE COMPONENT PRESENT. Slide scanned and imaged by [email or web address] ThinPrep Imaging System with manual review of all selected rivera. Electronically Signed Out By STEF Kelley (ASCP) STEF Kelley (ASCP) Cervical cytology is a screening test primarily for squamous cancers and precursors and has associated false negative and positive results. New technologies such as liquid based sampling may decrease but will not eliminate all false negative results. Regular screening and follow-up of unexplained clinical signs and symptoms are recommended to minimize false negative results. Please see the ASCCP website (www.asccp.org) for followup recommendations. If HPV testing was requested, correlation with the results is suggested (please call Microbiology at [phone] for results). CLINICAL INFORMATION: Menstrual History: Cyclic Date of Last Menstrual Period: 19jun2020 Contraceptive History: Intrauterine device Other Clinical Conditions: If ASCUS and > 24 years of age, HPV/DNA testing requested. SPECIMEN DESCRIPTION: A: THIN PREP (CERVICAL/VAGINAL) THIN PREP PROCESS CELLULAR ENHANCEMENT ICD: F: A; RT IMAGE [id number] SNOMED CODES: A; [id number] In cases where a pathologist has signed out the report, the service has been rendered in part by a resident. The signing pathologist has performed and is responsible for the reported pathologic evaluation. Karlie Gallardo APRN, CNM LAB PATHOLOGY ORDER KEILA Final Result [facility] from Last 3 Months or Most Recently Relevant to Health Maintenance Additional Health Concerns Active Problems Noted Date Diagnosed Date CPM S22 PP LABOR (OBSTETRICS) 07/08/[address] [place] [address] [facility] Care Teams Whiskey Regauger Relationship Specialty Start Date End Date Ramez Green MD [address] [place] [address] [place] [address] PCP - General 09/27/21
--- OUTSIDE RECORDS SUMMARY | 2025-02-02 10:22 | XMS_ITS | Encounter Summary ---
Author Organization [facility] Address [address] 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 [address] [place] [address] Karlie Gallardo, [place], [place] [address] Social History Tobacco Use Types Packs/Day Years Used Date Smoking Tobacco: Never Alcohol Use Standard Drinks/Week Comments No 0 (1 standard drink = 0.6 oz pur e alcohol) Comments Unknown Sex and Gender Information Value Date Recorded Sex Assigned at Female 08/12/2023 4:07 PM EDT Legal Sex Female 8:00 PM EDT Gender Identity Female 08/12/2023 4:07 PM EDT Sexual Orientation Straight 08/12/2023 4: 07 PM EDT documented as of this encounter Plan of Treatment Not on file documented as of this encounter Visit Diagnoses Not on filedocumented in this encounter Care Teams Fly Frame Tender Relationship Specialty Start Date End Date Ramez Green MD [address] [place] [id number] PCP - General 09/27/[address] [facility] [address] [place] [address] Billing And Accounting Staff Assistant Diabetes Services 11/17/23 11/16/24 documented as of this encounter
--- OUTSIDE RECORDS SUMMARY | 2025-02-02 10:22 | XMS_ITS | Encounter Summary ---
Author Organization [facility] [place] Address [address] [place] [address] Care Team Providers Care Power Brake Rebuilder Name Role Phone Ramez Green MD Primary Care Provider Rosa Valenzuela RD Unavailable [phone] Reason for Visit * Reason Comments Med Refill Encounter Details Date Type Department Care Team (Late st Contact Info) Description 08/25/2021 Refill [place] REGISTRY NP [address] [place] [address] Karlie Gallardo, [place], [place] [address] Social History Tobacco Use Types Packs/Day Years [...] on filedocumented in this encounter Care Teams Power Brake Rebuilder Relationship Specialty Start Date End Date Ramez Green MD [address] [place] [address] PCP - General 09/27/[address] [facility] [address] [place] [address] Business Coordinator Diabetes Services 11/17/23 11/16/24 documented as of this encounter
--- OUTSIDE RECORDS SUMMARY | 2025-02-02 10:22 | XMS_ITS | Encounter Summary ---
Author Organization [facility] Address [address] 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 [address] [place] [address] Karlie Gallardo, OFFICE SUPPORT ASSISTANT, [facility] [address] [place] [address] Encounter for surveillance of contraceptives, unspecified contraceptive Social History Tobacco Use Types Packs/Day Years [...] documented as of this encounter Visit Diagnoses Diagnosis Encounter for surveillance of contraceptives, unspecified contraceptive documented in this encounter Care Teams Information Systems Security Specialist Relationship Specialty Start Date End Date Ramez Green MD [address] [place] [address] PCP - General 09/27/[address] [facility] [address] [place] [address] [employer] Diabetes Services 11/17/23 11/16/24 documented as of this encounter
--- OUTSIDE RECORDS SUMMARY | 2025-02-02 10:22 | XMS_ITS | Encounter Summary ---
Author Organization [facility] Address [address] [place] [address] Care Team Providers Care Sap Hana Architect Name Role Phone Ramez Green MD Primary Care Provider [phone] Unavailable [phone] Reason for Visit * Reason Comments Med Refill Encounter Details Date Type Department Care Team (Late st Contact Info) Description 02/06/2021 Refill [place] CONSTRUCTION REPRESENTATIVE [address] [place] [address] Karlie Gallardo, [address], [place] [address] Social History Tobacco Use Types Packs/Day Years [...] on filedocumented in this encounter Care Teams Sap Hana Architect Relationship Specialty Start Date End Date Ramez Green MD [address] [place] [address] PCP - General 09/27/[address] [facility] [address] [place] [address] Chief Diversity Officer Diabetes Services 11/17/23 11/16/24 documented as of this encounter
== END 2025-02-01 23:59 ==
LOC: LAB.DROPOF 02-02 10:18
PROVIDERS: PCP Nurse Practitioner Family; Visit Provider Nurse Practitioner
DX: N39.0 Urinary tract infection, site not specified (principal)
CPT/HCPCS: 87086; 87088